=== PATIENT | male | born 1990 | race Caucasian/White ===

== ENCOUNTER 2020-08-09 18:43 | Emergency (ER) | payer OTHER, SELFPAY ==
--- NOTE | ~2020-08-09 | XR_ITS ---
EXAMINATION: XR chest 2V EXAM DATE: 08/09/2020 19:18 INDICATION: Recent COVID pneumonia. Shortness of breath. TECHNIQUE: Frontal and lateral projections of the chest obtained and reviewed. There is no prior tee dy for comparison. FINDINGS: The lungs are clear. There are no pleural effusions. The cardiomediastinal silhouette is within normal limits. There is no pneumothorax suspected. The bones and soft tissues are unremarkab le. IMPRESSION: No acute cardiopulmonary findings. Reviewed, dictated and finalized at location A. RATIONS WORKROOM CLERK
--- NOTE | 2020-08-09 18:45 | ED.GENADULT ---
HPI - General Adult General Chief complaint: Skin/Abscess/Foreign Body Stated complaint: Lumps in neck Time Seen by Provider: 08/09/20 18:45 Source: patient Mode of arrival: ambulatory Limitations: no limitations History of Present Illness HPI narrative: 30-year-old male patient presents to the [facility] with complaints of lumps to the left side of his neck for the past 3 weeks. Patient was diagnosed with Covid 3 weeks ago. Patient states that since he has been released by [facility]. Patient states he has had a little lump to the left side of the neck when he was first diagnosed and states that he has gotten a couple more lumps since then. Patient states they are nontender. Patient also states that he has had a little bit of shortness of breath. Denies any fevers, body aches or chills. Denies any nausea vomiting or diarrhea. Patient states he has had some constipation but that is chronic. Patient is an active smoker. Related Data Allergies Allergy/AdvReac Type Severity Reaction Status Date / Time No Known Allergies Allergy Unverified 12/31/17 17:48 Review of Systems Review of Systems: Narrative: CONSTITUTIONAL: Denies fever, chills, or sweats. EYES: Denies visual changes, redness, or discharge. ENT: Denies rhinorrhea, congestion, sore throat, or otalgia. Positive lumps to left side of the neck x3 weeks CARDIOVASCULAR: Denies chest pain, palpitations, or edema. RESPIRATORY: Denies cough, positive dyspnea. GASTROINTESTINAL: Denies abdominal pain, nausea, vomiting, or diarrhea. GENITOURINARY: Denies dysuria or hematuria. SKIN: Denies rash or itching. MUSCULOSKELETAL: Denies back pain, joint pain, or myalgia. NEUROLOGIC: Denies headache, numbness, or weakness. PSYCHIATRIC: Denies anxiety or depression. [facility] Past Medical History Medical History (Updated 08/09/20 @ 19:34 by NYA Cronin) Eustachian tube dysfunction RSV (acute bronchiolitis due to respiratory syncytial virus) 2010 Family History Family History (Updated 08/09/20 @ 19:12 by NYA Cronin) Other Lung cancer Social History Social History (Updated 08/09/20 @ 18:46 by NYA Cronin) Smoking status: Current every day smoker Alcohol intake: never Comments At the time of my signature I agree with nursing past medical history, surgical, social, and family history. There is no relevant family history pertinent to the presenting complaint. Exam Narrative: Exam Narrative: GENERAL: Well-appearing, well-nourished, and in no acute distress. HEAD: Normocephalic, atraumatic. EYES: PERRLA and EOMI. ENT: Nares clear, no rhinorrhea or epistaxis. Mucous membranes moist. Posterior pharynx with some erythema. No tonsil enlargement noted. Bilateral TMs are clear no erythema or foreign bodies in the canal. NECK: Supple. No obvious lymphadenopathy noted on palpation to the left lateral neck. No obvious supraclavicular lymph node swelling noted on palpation. CHEST: Slight expiratory wheezing noted to the right upper and right lower lobe on auscultation. No respiratory distress. Patient able talk in clear complete sentences. HEART: Regular rate and rhythm. No murmur heard. Normal peripheral pulses. ABDOMEN: Soft, nontender, nondistended, normal active bowel sounds. EXTREMITIES: Normal range of motion. No edema. SKIN: Warm, dry, no rash. NEURO: No focal deficits. Alert and oriented x3. Course Reevaluation(s) Reevaluation #1: Reevaluated patient after his strep and chest x-ray had resulted. Notified of the strep is negative and his chest x-ray is clear. Discussed with patient that the lymph node swelling that he is feeling was most likely due to the fact that he had a recent Covid infection. Discussed with patient that this may take some time to go away however he can take things like ibuprofen and use a heating pad to the lymph node area for comfort and to help with swelling. Discussed with patient I did go ahead and refer him to a primary docto
[2020-08-09 19:00] VITALS: BP 143/84; PULSE 71; RESP 16; TEMP 36.4; O2SAT 100
== END 2020-08-09 19:38 | disposition home or self-care (01) ==
PROVIDERS: Emergency Provider Nurse Practitioner Family
DX: J06.9 Acute upper respiratory infection, unspecified (principal); R59.1 Generalized enlarged lymph nodes; U07.1 COVID-19
CPT/HCPCS: 71046; 87081; 87880; 99213; G0463

== ENCOUNTER 2020-08-12 11:21 | Outpatient (CLI) | payer OTHER, SELFPAY ==
[2020-08-12 11:51] LABS: Hematocrit 45.6 % (42.0-52.0); Hemoglobin 15.8 g/dL (14.0-18.0); Mean Corpuscular HGB Conc 34.6 g/dl (32-36); Mean Corpuscular Hemoglobin 31.3 pg (26-34); Mean Corpuscular Volume 90.3 fl (80-100); Mean Platelet Volume 10.2 fl (7.4-10.4); Platelet Count Result 273 k/mm3 (150-375); Red Blood Count 5.05 M/mm3 (4.6-6.20); Red Cell Distribution Width 13.4 % (11.5-14.5); White Blood Count 4.8 K/mm3 (4.5-10.0)
[2020-08-12 12:04] LABS: Alanine Aminotransferase 33 U/L (4-50); Albumin Level 4.6 g/dL (3.5-5.1); Alkaline Phosphatase 61 U/L (38-126); Anion Gap 10 mmol/L (8-16); Aspartate Amino Transferase 33 U/L (17-59); Bilirubin,Total 0.7 mg/dL (0.2-1.3); Blood Urea Nitrogen 17 mg/dL (9-20); Calcium 9.6 mg/dL (8.4-10.2); Carbon Dioxide 30 mmol/L (22-30); Chloride 99 mmol/L (98-107); Cholesterol 194 mg/dL (0-200); Estimated Glomerular Filt Rate > 60; Glucose 111 mg/dL (75-110); HDL Direct 65 mg/dL; Potassium 4.8 mmol/L (3.4-5.0); Sodium 139 mmol/L (137-145); Triglycerides 70 mg/dL (<150)
[2020-08-12 12:05] LABS: Rheumatoid Factor < 8.6 IU/ML (<12)
[2020-08-12 12:15] LABS: LDL Cholesterol Direct 101 mg/dL
[2020-08-12 13:25] LABS: Basophils Percent Auto 0.6 % (0.2-1.2); Eosinophils Percent Auto 0.6 % (0-4.4); Immature Granulocyte Absolute 0.02 K/mm3 (0.00-0.031); Immature Granulocyte Percent A 0.4 % (0-0.5); Lymphocytes Absolute Auto 0.75 K/mm3 (0.9-3.2); Lymphocytes Percent Auto 16.2 % (18.3-44.2); Monocytes Absolute Auto 0.4 K/mm3 (0.1-0.6); Monocytes Percent Auto 8.7 % (2.6-8.5); Neutrophils Absolute Auto 3.4 K/mm3 (1.3-6.7); Neutrophils Percent Auto 73.5 % (45.5-73.1)
[2020-08-12 14:18] LABS: Erythrocyte Sedimentation Rate 5 mm/hr (0-20)
== END 2020-08-12 11:22 | disposition home or self-care (01) ==
PROVIDERS: PCP Emergency Medicine; Visit Provider Emergency Medicine
DX: R59.0 Localized enlarged lymph nodes (principal)
CPT/HCPCS: 36415; 80053; 80061; 84439; 84443; 85025; 85027; 85652; 86038; 86430

== ENCOUNTER 2020-08-12 12:18 | Emergency (ER) | payer OTHER, SELFPAY ==
--- NOTE | ~2020-08-12 | XR_ITS ---
EXAMINATION: XR chest 1V portable INDICATION: Left supraclavicular lymphadenopathy TECHNIQUE: Portable AP chest at 1353 hours COMPARISON: 08/09/2020 FINDINGS: The lungs are free of acute opacities. There is no pleural effusion or pneumothorax. The ca rdiomediastinal silhouette is normal. There is mild asymmetry in the left supraclavicular fat planes compared to the right of unclear etiology. IMPRESSION: 1. No acute cardiopulmonary abnormality. 2. Mild asymmetry of the left supraclavicular fat planes which could reflect the clinically diagnosed lymphadenopathy. Sensitivity of radiographs is low. Reviewed, dictated and finalized at location A. AL GENETICIST IMPRESSION: 1. No acute cardiopulmonary abnormality. 2. Mild asymmetry of the left supraclavicular fat planes which could reflect th e clinically diagnosed lymphadenopathy. Sensitivity of radiographs is low.
--- NOTE | ~2020-08-12 | CT_ITS ---
EXAMINATION: CT diagnostic chest w con DATE: 08/12/2020 14:25 INDICATION: Lymphadenopathy. Possible superior vena cava obstruction TECHNIQUE: Computed tomography (CT) of the chest was performed with 75 cc Omnipaque 350 intravenous c ontrast. Automated exposure control and iterative reconstruction technique were employed. Exam dose: 183.34 mGy-cm total exam DLP. COMPARISON: May 12, 2021 portable AP chest FINDINGS: The lungs are clear of infiltrate or consolidation. Superior segment right lower lobe calci fied pulmonary granuloma consistent with old pulmonary granulomatous disease. Normal size and homogeneous enhancement of the thyroid gland. Left supraclavicular lymphadenopathy. Mild lower left posterior triangle cervical lymphadenopathy. Left lateral superior 1.4 x 1.7 cm mediastinal lymphadenopathy impressing the left subclavian and bra chiocephalic veins. Prominent mid superior mediastinal lymphadenopathy, prevascular lymphadenopathy and aortopulmonary wi ndow lymphadenopathy are noted as well. No hilar or subcarinal lymphadenopathy. No retrocrural or upper abdominal periaortic or aortocaval lymphadenopathy. Normal splenic size. Normal heart size. No thoracic aortic aneurysm or dissection. No pericardial or pleural effusion. Normal morphology of the adrenal glands. Included upper abdominal structures are unremarkable. IMPRESSION: Superior mediastinal, prevascular and aortopulmonary prominent lymphadenopathy Left supraclavicular lymphadenopathy Lower left posterior triangle mild lymphadenopathy There is some compression of the left subclavian and brachiocephalic veins by left superior mediastin al lymphadenopathy but no superior vena cava occlusion Reviewed, dictated and finalized at Location A. Reviewed, dictated and finalized at location B. EAR EQUIPMENT TEST ENGINEER IMPRESSION: Superior mediastinal, prevascular and aortopulmonary prominent lym phadenopathy Left supraclavicular lymphadenopathy Lower left posterior triangle mild lymphadenopathy There is some compression of the left subclavian and brachiocephalic veins by l eft superior mediastinal lymphadenopathy but no superior vena cava occlusion
[2020-08-12 12:31] VITALS: BP 124/60; PULSE 76; RESP 16; TEMP 36.8; O2SAT 97
--- NOTE | 2020-08-12 12:58 | ECG_ITS ---
Measurements Intervals [place] Rate: 70 P: 19 KS: 143 QRS: 61 QRSD: 93 T: 50 QT: 365 QTc: 394 Interpretive Statements SINUS RHYTHM CANNOT RULE OUT SEPTAL INFARCT, AGE INDETERMINATE BASELINE ARTIFACT- I, II, AVR, AVL, V4 ABNORMAL ECG Electronically Signed On 08-12-2020 13:22:00 CORPORATE LEGAL SECRETARY by Homreo Corral D.O.
--- NOTE | 2020-08-12 13:01 | ED.GENADULT ---
HPI - General Adult General Chief complaint: Unspecified Stated complaint: lumps on neck and groin Time Seen by Provider: 08/12/20 12:51 Source: patient and family Mode of arrival: ambulatory Limitations: no limitations History of Present Illness HPI narrative: Patient is 30 years old white male presented to the ED with lumps at the base of left side of the neck noticed over 3 weeks ago. Slightly tender to touch. Patient denies any fever, chills, nausea, vomiting, chest pain, shortness of breath, headache. History of COVID-19 infection 3 weeks ago. Related Data Home Medications Medication Instructions Recorded Confirmed No Home Medications 08/12/20 08/12/20 Allergies Allergy/AdvReac Type Severity Reaction Status Date / Time No Known Allergies Allergy Verified 08/12/20 12:41 Review of Systems Review of Systems: Narrative: CONSTITUTIONAL: Denies fever, chills, or sweats. EYES: Denies visual changes, redness, or discharge. ENT: Denies rhinorrhea, congestion, sore throat, or otalgia. CARDIOVASCULAR: Denies chest pain, palpitations, or edema. RESPIRATORY: Denies cough or dyspnea. GASTROINTESTINAL: Denies abdominal pain, nausea, vomiting, or diarrhea. GENITOURINARY: Denies dysuria or hematuria. SKIN: Denies rash or itching. MUSCULOSKELETAL: Denies back pain, joint pain, or myalgia. NEUROLOGIC: Denies headache, numbness, or weakness. PSYCHIATRIC: Denies anxiety or depression. [facility] Past Medical History Medical History Eustachian tube dysfunction RSV (acute bronchiolitis due to respiratory syncytial virus) 2010 Family History Family History Other Lung cancer Social History Social History Smoking status: Current every day smoker Alcohol intake: never Gender identity (if verbalized by the patient): Male Exam Narrative: Exam Narrative: General appearance: Well-developed, well-nourished Skin: Normal color Head: Normocephalic, nontraumatic Eyes: Clear conjunctiva ENT: Oropharynx normal, ears normal, nose normal Neck: Supple, nontender, JVD mainly on the left side, supraclavicular puffiness Chest and respiratory: Airway patent, no respiratory distress, no accessory muscle use Heart: Regular rate/rhythm Abdomen: Soft, nontender, no organomegaly, quiet bowel sounds Vascular: Normal peripheral pulses, normal capillary refill. Musculoskeletal: Normal range of motion, nontender back Neurologic: Alert and oriented ?3, [employer] CONSULTANT is normal as tested, no gross motor deficit Course Course Emergency Course: Stable Consultations Consultation #1: Dr. Syed Ultrasound-guided lymph node biopsy by interventional radiologist Interventional radiology are not available today, Dr. Syed will call for appointment. Date: 08/12/20 Time: 16:01 Vital Signs Vital signs: Vital Signs Temperature 36.8 C 08/12/20 12:31 Pulse Rate 76 08/12/20 12:31 Respiratory Rate 16 08/12/20 12:31 Blood Pressure 124/60 08/12/20 12:31 Pulse Oximetry 97 08/12/20 12:31 Temperature 36.8 C 08/12/20 12:31 Pulse Rate 66 08/12/20 15:19 Respiratory Rate 17 08/12/20 15:19 Blood Pressure 126/76 08/12/20 15:19 Pulse Oximetry 98 08/12/20 15:19 Medical Decision Making MDM Narrative Medical decision making narrative: Patient presents with left supraclavicular swelling and JVD bilaterally mainly on the left side, Inferior vena cava, intrathoracic lymphadenopathy or tumors are my concern. Labs, chest x-ray, CT chest with contrast ordered. Further plan to follow Differential Diagnosis Di
[2020-08-12 13:59] VITALS: BP 154/67; PULSE 72; RESP 18; O2SAT 100
[2020-08-12 14:00] VITALS: PULSE 79
[2020-08-12 15:19] VITALS: BP 126/76; PULSE 66; RESP 17; O2SAT 98
[2020-08-12 16:32] VITALS: BP 124/79; PULSE 79; RESP 17; O2SAT 100
== END 2020-08-12 16:34 | disposition home or self-care (01) ==
PROVIDERS: Emergency Provider Emergency Medicine; PCP Emergency Medicine
DX: R59.1 Generalized enlarged lymph nodes (principal); F17.200 Nicotine dependence, unspecified, uncomplicated; Z86.16 Personal history of COVID-19
CPT/HCPCS: 71045; 71260; 93005; 99284; Q9967

== ENCOUNTER 2020-08-17 12:48 | Outpatient (CLI) | payer OTHER, SELFPAY ==
--- NOTE | ~2020-08-17 | US_ITS ---
EXAMINATION: US biopsy lymph node DATE: 08/17/2020 14:08 INDICATION: Left supraclavicular lymphadenopathy TECHNIQUE: The procedure including the risks and benefits was discussed with the patient. Risks discu ssed included bleeding and infection. The patient understood the risks and agreed to proceed. The sk in overlying the left supraclavicular region was prepped and draped in usual sterile fashion. Anesth etic was administered with 1% lidocaine subcutaneously. An 14 gauge core biopsy needle was advanced under continuous ultrasound observation to the lesion of interest. 5 core biopsy specimens were obta ined, 3 placed in RPMI media and 2 in formalin. The needle was removed and the entry site was cleane d and dressed. Post procedure ultrasound demonstrated no hemorrhage. FINDINGS: Ultrasound images demonstrate multiple enlarged hypoechoic left supraclavicular lymph nodes with short axis diameters measuring between 9 mm and 1.5 cm. Subsequent images demonstrate biopsy ne edle advanced into 3 of the enlarged lymph nodes. IMPRESSION: 1. Successful Ultrasound-guided biopsy of enlarged left supraclavicular lymph nodes nodes. Reviewed, dictated and finalized at location A. UNICATION EQUIPMENT MECHANIC IMPRESSION: 1. Successful Ultrasound-guided biopsy of enlarged left supraclavicular lymph n odes nodes.
[2020-08-20 01:00] LABS: NIL 0.01 IU/mL; Quantiferon TB Plus, 1T NEGATIVE (NEGATIVE)
== END 2020-08-17 12:49 | disposition home or self-care (01) ==
PROVIDERS: PCP Emergency Medicine; Referring Provider Emergency Medicine; Visit Provider Internal Medicine Hematology & Oncology
DX: C85.91 Non-Hodgkin lymphoma, unspecified, lymph nodes of head, face, and neck (principal)
CPT/HCPCS: 36415; 38505; 76942; 86480; 88305; 88342

== ENCOUNTER 2020-08-30 10:32 | Outpatient (CLI) | payer OTHER, SELFPAY ==
--- NOTE | ~2020-08-30 | PE_ITS ---
EXAMINATION: PET skull to mid thigh DATE: 08/30/2020 12:31 INDICATION: Hodgkin lymphoma of lymph nodes of the neck TECHNIQUE: Blood glucose level was 91 mg/dL. 10.77 mCi of 18-fluorodeoxyglucose (18-FDG) was administ ered i.v. Low dose computed tomography (CT) images were acquired from the base of the brain to the pr oximal thighs for attenuation correction and anatomic localization. Positron emission tomography (PET ) images were acquired in the same distribution beginning 58 minutes after injection. The dose-length product (DLP) was 348.23 mGy-cm. COMPARISON: CT, 08/12/2020 FINDINGS: Head/neck: There are pathologically enlarged left posterior cervical triangle lymph nodes which measu re up to 4.5 x 1.7 cm and demonstrate abnormal FDG uptake with an SUV max of 5.9 there is a 1.6 x 1.3 cm medial left supraclavicular lymph node with abnormal FDG uptake and SUV max of 3.4. Chest: There are pathologically enlarged left upper paratracheal and upper pretracheal lymph nodes wh ich measure up to 3.2 x 1.8 cm and demonstrate abnormal FDG uptake with an SUV max of 7.1. Pathologic ally enlarged prevascular lymph nodes measure up to 3.3 x 1.6 cm and demonstrate abnormal FDG uptake with an SUV max of 5.4. There is a 1.9 x 1.7 cm left internal mammary chain lymph node with an SUV ma x of 3.5. The lungs are free of acute opacities. There is no pleural effusion or pneumothorax. The he art size is normal. Abdomen/pelvis/proximal thighs: Physiologic FDG activity is present in the bowel and urinary tract. N o abnormal FDG uptake is identified. The liver, spleen, pancreas, gallbladder, and adrenal glands ar e normal. The kidneys are unremarkable. No pathologically enlarged abdominal or pelvic lymph nodes ar e identified. There is no free intraperitoneal gas or evidence of bowel obstruction. Musculoskeletal: No abnormal FDG uptake is identified. IMPRESSION: 1. Mediastinal and left neck lymphadenopathy with abnormal FDG uptake as detailed above, consistent w ith history of Hodgkin lymphoma. Reviewed, dictated and finalized at location A. OBGYN IMPRESSION: 1. Mediastinal and left neck lymphadenopathy with abnormal FDG uptake as detail ed above, consistent with history of Hodgkin lymphoma.
[2020-08-30 10:54] LABS: Glucose Point of Care 91 (65-105)
== END 2020-08-30 10:33 | disposition home or self-care (01) ==
LOC: ANHIMG 10:33
PROVIDERS: PCP Emergency Medicine; Visit Provider Internal Medicine Hematology & Oncology
DX: M54.6 Pain in thoracic spine (principal); C85.91 Non-Hodgkin lymphoma, unspecified, lymph nodes of head, face, and neck; R59.0 Localized enlarged lymph nodes
CPT/HCPCS: 78815; 82948; A9552

== ENCOUNTER 2020-09-05 10:41 | Outpatient (CLI) | payer OTHER, SELFPAY ==
--- NOTE | 2020-09-05 | ECHO_ITS ---
Patient Info Name: Ben Miramontes Age: 30 years : 1990 Gender: Male Ht: 71 in Wt: 150 lbs BSA: 1.84 m2 HR: 68 bpm BP: 135 / 89 mmHg Exam Date: 09/05/2020 11:08 AM Exam Location: [facility] Patient Status: Outpatient Admit Date: 09/05/2020 Staff Ordering Physician: Ta Syed MD Beam Sealer: Michelle Juarez RDCS Attending Provider: Ta Syed MD Referring Physician: Yahaira NORRIS; Exam Type: CA echo doppler color flow Study Info Indications - Hodgkins Lymphoma Complete two-dimensional, color flow and Doppler transthoracic echocardiogram is performed. Summary 1. Complete two-dimensional, color flow and Doppler transthoracic echocardiogram is performed. 2. Left ventricular chamber dimension is normal. 3. Left ventricular systolic function is normal, estimated at 60-65%. 4. The left ventricular diastolic function is normal. 5. E/e' 4 is normal. 6. Global longitudinal strain is not performed. 7. There is mild tricuspid valve regurgitation. 8. No pulmonary hypertension, estimated pulmonary arterial systolic pressure is 17 mmHg. 9. There is trace pulmonic regurgitation. Left Ventricle E/e' 4 is normal. Global longitudinal strain is not performed. Left ventricular chamber dimension is normal. Left ventricular systolic function is normal, estimated at 60-65%. The left ventricular diastolic function is normal. Right Ventricle Right ventricular chamber dimension is normal. Right ventricular systolic function is normal. Left Atria Left atrial chamber dimension is normal. Right Atria Right atrial chamber dimension is normal. Aortic Valve The aortic valve is trileaflet. There is no aortic valve stenosis. There is no aortic valve regurgitation. Pulmonic Valve There is trace pulmonic regurgitation. Mitral Valve There is no mitral valve stenosis. There is no mitral valve regurgitation. Tricuspid Valve There is mild tricuspid valve regurgitation. No pulmonary hypertension, estimated pulmonary arterial systolic pressure is 17 mmHg. Pericardium/Pleural There is no pericardial effusion. Inferior Vena Cava Normal inferior vena cava with >50% collapse upon inspiration consistent with normal right atrial pressure, 5 mmHg. Aorta The aortic root size at the sinus of Valsalva is normal. Left Ventricular Outflow Tract Name Value Normal LVOT 2D LVOT Diameter 1.9 cm LVOT Doppler LVOT Peak Gradient 4 mmHg LVOT Mean Gradient 2 mmHg LVOT VTI 28 cm LVOT VTI/AV VTI Ratio 0.8 LVOT Stroke Volume 82 ml LVOT CO 11.7 l/min LVOT CI 6.4 l/min/m2 Pulmonic Valve Name Value Normal RVOT Doppler RVOT Peak Grad
== END 2020-09-05 10:42 | disposition home or self-care (01) ==
PROVIDERS: PCP Emergency Medicine; Visit Provider Internal Medicine Hematology & Oncology
DX: C81.72 Other Hodgkin lymphoma, intrathoracic lymph nodes (principal); I36.1 Nonrheumatic tricuspid (valve) insufficiency
CPT/HCPCS: 93306

== ENCOUNTER 2020-09-12 02:20 | Day surgery (SDC) | payer OTHER, SELFPAY ==
[2020-09-05 13:20] VITALS: BMI 21.5
--- NOTE | ~2020-09-12 | XR_ITS ---
EXAMINATION: XR chest port-a-cath/central DATE: 09/12/2020 13:16 INDICATION: Port catheter insertion TECHNIQUE: frontal view of the chest was obtained. COMPARISON: Chest radiograph dated 08/12/2020 FINDINGS: Interval placement of a right internal jugular central venous port catheter with distal tip in the ca udal superior vena cava. Lungs remain clear with no focal airspace opacities, pulmonary edema, pleura l effusion or pneumothorax. Cardiomediastinal silhouette is normal. Visualized bones and soft tissues are unremarkable. IMPRESSION: 1. Right internal jugular central venous port catheter tip in the caudal superior vena cava. No acute cardiopulmonary disease. Reviewed, dictated and finalized at location A. IMPRESSION: 1. Right internal jugular central venous port catheter tip in the caudal superi or vena cava. No acute cardiopulmonary disease.
--- NOTE | ~2020-09-12 | XR_ITS ---
EXAMINATION: XR fl guide central line place EXAM DATE: 09/12/2020 12:54 INDICATION: Denny catheter insertion. TECHNIQUE: Fluoroscopy used during XR fl guide central line place performed by Dr. Syd Franklin MD. Radiologist was not present for the imaging or procedure. The DAP for this procedure was 0.06 7 mGym2. FINDINGS: Frontal image demonstrates right-sided Port-A-Cath IJ approach, tip over expected location of the cavoatrial junction. Correlate with procedure note. IMPRESSION: Fluoroscopy used during denny catheter insertion. Reviewed, dictated and finalized at location A.
--- NOTE | 2020-09-12 11:13 | WPDANESEPPF ---
Anes - Initial Pre Proc Eval Procedure: Operation Date: 09/12/20 12:00 Proposed Procedures p Insertion Denny Cath - Syd Franklin MD Date/Time: 09/12/20 11:13 Surgeon: Syd Franklin MD Pre Op Diagnosis: hodgkins lymphoma Patient Data Age: 30 Gender: M Height: 1.8 m Weight: 70 kg Allergies Allergy/AdvReac Type Severity Reaction Status Date / Time No Known Allergies Allergy Verified 09/05/20 13:19 Home Medications Medication Instructions Recorded Confirmed Type multivitamin with minerals [Men's 1 tablet PO DAILY 09/05/20 09/05/20 History One Daily] Patient hx anesthesia problems: none Family hx anesthesia problems: none PMFSH Past Medical History Medical History Eustachian tube dysfunction RSV (acute bronchiolitis due to respiratory syncytial virus) 2010 Family History Family History Other Lung cancer Social History Social History Years smoked: 13 Smoking status: Current every day smoker Tobacco type: cigarettes Alcohol intake: never Substance use: current Substance use type: marijuana Gender identity (if verbalized by the patient): Male Spiritual care concerns: No Anes - Eval Final PreProcedure Day of Procedure 09/12/20 11:13 Patient weight: normal Heart: regular rate and rhythm Lungs: clear to auscultation and normal air movement Airway: Mallampati scale class II Neurological: alert and oriented Last oral intake: >/= 8 hours ASA classification: III Emergent: no Anesthetic plan: proceed Anesthesia type and monitoring: general GIVS and standard monitoring Informed Consent: The patient's anesthetic plan and its attendant risks and benefits were discussed with the patient/family/POA. Questions were solicited and answers provided to the satisfaction of the patient/family/POA.
[2020-09-12] MEDS: LACTATED RINGERS 1,000 ML 30 ML IV CONT (11:20)
[2020-09-12] MEDS: KETOROLAC 15 MG/ML VIAL (*BKC) IV PUSH (11:36)
[2020-09-12 11:37] VITALS: BP 128/79; PULSE 72; TEMP 37.2; O2SAT 100
[2020-09-12 11:37] LABS: INR 0.9; Prothrombin Time 12.6 Seconds (11.1-14.7)
[2020-09-12 11:38] LABS: Partial Thromboplastin Time 32.6 SECONDS (22.3-36.8)
--- NOTE | 2020-09-12 11:39 | PM.HPGS ---
History of Present Illness History of Present Illness Consent: Risks, benefits, and alternatives of an US guided placement of Port-A-Cath by ultrasound guidance have been discussed and questions answered. Patient agrees to proceed with procedure. Chief complaint: hodgkins lymphoma Narrative: Ben Miramontes is a 30 year old male who was recently diagnosed with classical Hodgkin's lymphoma stage to be. He had biopsy of a mediastinal lymph node done on August 17, 2020. He has had a PET scan done on August 30 which showed a 4.5 x 1.7 cm Lt. posterior cervical triangle lymph node with elevated SUV on a PET. There were several other lymph nodes that also had signs of tumor on his PET scan. He has discuss further treatment with Dr. Mike singleton and they would like to have a Port-A-Cath placed for chemotherapy. Review of Systems Constitutional: Constitutional: Reports no additional constitutional complaints, Reports fatigue and Denies malaise Eyes: Eyes: Denies change in vision and Denies loss of vision ENT: Reports Normal hearing present, Denies change in voice, Denies dizziness, Denies hoarseness and Denies sore throat Cardiovascular: Cardiovascular: Denies chest pain, Denies leg edema and Denies dyspnea Respiratory: Respiratory: Denies cough, Denies dyspnea and Denies wheezing Gastrointestinal: Gastrointestinal: Denies hematochezia, Denies change in bowel habits and Denies heartburn Genitourinary: Genitourinary: Denies urinary frequency and Denies urinary incontinence Neurologic: Reports Normal hearing present, Denies confusion, Denies dizziness, Denies loss of vision, Denies memory loss and Denies seizure-like activity Psychiatric: Psychiatric: Denies confusion, Denies depression and Denies memory loss Endocrine: Endocrine: Denies cold intolerance and Reports fatigue Hematologic/Lymphatic: Hematologic/Lymphatic: Denies easy bleeding and Denies easy bruising Allergic/Immunologic: Allergic/Immunologic: Denies wheezing PMFSH Past Medical History Medical History Eustachian tube dysfunction RSV (acute bronchiolitis due to respiratory syncytial virus) 2010 Smoker Family History Family History Other Lung cancer Social History Social History Years smoked: 13 Smoking status: Current every day smoker Tobacco type: cigarettes Alcohol intake: never Substance use: current Substance use type: marijuana Gender identity (if verbalized by the patient): Male Spiritual care concerns: No Meds Home Medications and Allergies Home Medications Medication Instructions Recorded Confirmed Type multivitamin with minerals [Men's 1 tablet PO DAILY 09/05/20 09/05/20 History One Daily] hydrocodone-acetaminophen 1 tablet PO Q6H PRN #7 tablet 09/12/20 Rx Allergies Allergy/AdvReac Type Severity Reaction Status Date / Time No Known Allergies Allergy Verified 09/05/20 13:19 Exam Const: General: cooperative, healthy appearing, no acute distress, well developed and alert; No confusion Nutritional Appearance: well nourished Orientation/consciousness: patient oriented x3 and No confusion Limitations: no limitations HENMT: Head: normal to inspection, normocephalic and atraumatic Ears: hearing grossly normal bilaterally General nose exam: Normal external nose present Face and sinus: no edema Mouth: Yes Normal oral and palatal mucosa present and Yes lip normal Throat: posterior oropharynx normal Eyes: General: appearance normal, both eyes and all related structures Sclera: sclerae normal Pupils: Equal, round and reactive pupils present EOM: EOMs intact bilaterally Neck: Neck: normal visual inspection, trachea midline, supple and lymphadenopathy (Lt posterior [place] and supraclavicular lymph node enlargement.) Resp: Effort & Inspection: normal respiratory effort and able to speak in complete sen
--- NOTE | 2020-09-12 12:02 | WPDHPUPDATE1 ---
History and Physical Update Update Date/Time: 09/12/20 12:02 History and Physical has been reviewed, including an updated exam of the patient. There are NO changes in the patient's condition. Risks, benefits, and alternatives of an US guided placement of a Denny-cath have been discussed and questions answered. Patient agrees to proceed with procedure.
[2020-09-12] MEDS: ceFAZolin 2 GM/D5W 50 ML 2 GM/50 ML BAG IVPB (12:09)
[2020-09-12] MEDS: BUPIVACAINE/EPINEPHRINE 0.5% 30 ML VIAL INFILTRATE (12:36)
[2020-09-12] MEDS: HEPARIN SODIUM 5,000 UNITS/ML VIAL 5000 UNITS IRRIGATION (12:37)
[2020-09-12 13:05] VITALS: BP 109/66; PULSE 64; RESP 12; O2SAT 100
--- NOTE | 2020-09-12 13:20 | PM.PROC ---
Procedure Note - Detailed Date of procedure: 09/14/20 Pre-op diagnosis: hodgkins lymphoma Post-op diagnosis: same Procedure performed: Ultrasound-guided placement of Port-A-Cath Description of procedure: Patient was seen and marked in the pre-op area prior to coming to the OR. Patient was brought to the operating room. He was placed supine on the operating table and general IV sedation was induced. The nurse hand i cutter provided oxygen and IV sedation. Patient's head was carefully turned to the left side while in the supine position and the patient's entire neck and anterior chest on both sides was prepped and draped in the usual sterile fashion. Following this the appropriate time-out was completed confirming procedure and patient. We confirmed that all the needed equipment was present in the room. Following this the ultrasound probe was draped into the field and using the probe we carefully identified the carotid artery and jugular vein on the right neck. I marked the skin directly over the Rt. internal jugular vein. An image was taken with the ultrasound machine and transferred to his [employer] chart. She this showed normal vascular anatomy of the right jugular and internal carotid artery. Following this, after making a small slit with an 11 blade knife over the area of marked skin and using the continuous ultrasound guidance, a Cook needle was placed through the skin incision into this vein. I then was able to draw back good dark blood. Once this was completed a guidewire using a J-tip was advanced through the needle and then the needle and the guidewire cover were withdrawn. C-arm fluoroscopy was used to confirm that the guidewire was nicely in the venous system. Once this was confirmed with the C - arm I preceded on by making the pocket for the port on the patient's anterior right chest approximately 3 centimeters below the clavicle overlying the chest wall. Local anesthetic was infiltrated into the skin where there was a transverse incision marked out. Incision was made and we made a pocket inferior to the incision with just a little dissection superior. The low-profile port was tried in the pocket and seemed to fit well. Following this the catheter which had been placed on a tunneling device was tunneled from the port site on the anterior right chest up to the right neck where a small incision had been made with an #11 blade knife. Then the catheter was pulled through so that we would have 15 centimeters to put into the central venous system once the dilation took place. Following this we placed the dilator and sheath over the guidewire in the jugular vein and carefully dilated the tract into the central venous system. The guidewire and dilator were then removed, carefully covering the end of the sheath to prevent air embolus. The end of the catheter which had been cut off straight across and the tip checked was then inserted into the sheath and into the neck. I then carefully pulled the 2 arms of the tear-away sheath away as the physical therapy assistant held the catheter in position with a DeBakey forceps. Following this we checked the position of the catheter with C-arm fluoroscopy confirming that the tip seemed to be in the distal superior vena cava near the junction with the right atrium. I felt that it was in good position and so the rest of the catheter was pulled down toward the feet into the port site. We then measured to the appropriate position to cut the catheter to attach it to the port stem. Then the connector sealing device for the catheter port was placed onto the catheter and then the catheter cut to the appropriate length and inserted onto the stem of the port. Then the connector was advanced onto the stem over the catheter sealing it to the port. A single 3- 0 Prolene suture was also used during this to suture the connector to the port and to the underlying musculature. Following this at one other site the port was sutured to the underlying mus
[2020-09-12 13:25] VITALS: BP 129/72; PULSE 74; RESP 16; O2SAT 100
[2020-09-12 13:45] VITALS: BP 133/69; PULSE 58; RESP 16; O2SAT 100
[2020-09-12 13:58] VITALS: BP 139/81; PULSE 57; RESP 16; O2SAT 100
== END 2020-09-12 14:05 | disposition home or self-care (01) ==
PROVIDERS: PCP Emergency Medicine; Visit Provider Surgery
PROC: (CPT 36561; principal; 2020-09-12 12:00)
DX: C81.90 Hodgkin lymphoma, unspecified, unspecified site (principal); U07.1 COVID-19; F17.210 Nicotine dependence, cigarettes, uncomplicated; F12.90 Cannabis use, unspecified, uncomplicated
CPT/HCPCS: 36561; 36415; 77001; 85610; 85730; C1788; J0690; J1644; J1885; J2250; J2405; J2704; J3010; J7030; J7120

== ENCOUNTER 2020-09-12 08:11 | Outpatient (CLI) | payer OTHER, SELFPAY ==
--- NOTE | 2020-09-15 15:13 | WPDPFTINT ---
PFT Interpretation This PFT met all criteria for ATS standards and reproducibility FEV/FVC post bronchodilator 75% FEV1 96% FVC 107% TLC 102% RV 71% RV/TLC 76% DLCO 76% when adjusted for alveolar volume but not adjusted for hemoglobin Flow volume loops were normal. Impression: This is a normal pulmonary function test other than a mildly decreased diffusion capacity. Mildly decreased diffusion capacity may be a machine error possible normal variant. Clinical correlation is advised.
== END 2020-09-12 08:12 | disposition home or self-care (01) ==
PROVIDERS: PCP Emergency Medicine; Visit Provider Internal Medicine Hematology & Oncology
DX: C81.72 Other Hodgkin lymphoma, intrathoracic lymph nodes (principal)
CPT/HCPCS: 94375; 94726; 94729

== ENCOUNTER 2020-10-30 20:56 | Emergency (ER) | payer OTHER, SELFPAY ==
--- NOTE | ~2020-10-30 | CT_ITS ---
EXAMINATION: CT soft tissue neck w con DATE: 10/30/2020 23:23 INDICATION: Right anterior neck pain. TECHNIQUE: Computed tomography (CT) of the neck was performed with 75 mL Omnipaque-350 intravenous co ntrast. Automated exposure control and iterative reconstruction technique were employed. The dose-corey gth product was 535.55 mGy-cm. COMPARISON: Chest CT 08/12/2020, PET CT 08/30/2020 FINDINGS: There is mild mediastinal lymphadenopathy. For example, a prevascular lymph node measures 1 0 x 22 mm, improved from 21 x 34 mm on 08/30/2020. There is a 13 x 14 mm right high internal jugular ch ain lymph node. There is a right internal jugular port with tip in superior vena cava. There is throm bosis of right internal jugular vein and right sigmoid sinus. There is thrombus in the right brachioc ephalic vein around the port. There is fat stranding around the right internal jugular vein, consiste nt with inflammation. The adenoids are enlarged. The cervical carotid arteries are normal. There is m ild cervical spondylosis. IMPRESSION: 1. Thrombosis of right internal jugular vein and right sigmoid sinus. Thrombus in the right brachioce phalic vein around the port. 2. Mild mediastinal lymphadenopathy with interval improvement, consistent with lymphoma. 3. Mildly enlarged right high internal jugular chain lymph node, new from 08/30/2020, which may be reac tive or lymphoma. 4. Enlarged adenoids. Reviewed, dictated and finalized at location B. IMPRESSION: 1. Thrombosis of right internal jugular vein and right sigmoid sinus. Thrombus in the right brachiocephalic vein around the port. 2. Mild mediastinal lymphadenopathy with interval improvement, consistent with lymphoma. 3. Mildly enlarged right high internal jugular chain lymph node, new from 021, which may be reactive or lymphoma. 4. Enlarged adenoids.
[2020-10-30 21:00] VITALS: BP 135/95; PULSE 100; RESP 16; TEMP 36.1; O2SAT 100
--- NOTE | 2020-10-30 21:55 | ED.NECK ---
HPI - Neck Pain/Injury General Chief Complaint: Neck Pain/Injury Stated Complaint: possible infected port Time Seen by Provider: 10/30/20 21:19 Source: patient Mode of arrival: ambulatory Limitations: no limitations History of Present Illness HPI Narrative: This is a 30 year old male with hodgkin's lymphoma who presents for evaluation of right neck pain. He has a right subclavian port a cath that was placed in August 2020. He has been receiving infusion treatments every 2 weeks. His last infusion was 10 days ago . He states after receiving his infusion he developed burning in his throat and he has a scant amount of blood in his sputum. That resolved after 2 days. He states starting 2 days ago he has developed right anterior neck pain and his pain is worse with moving his neck. He denies nausea, vomiting, chest pain or sob. He reports he has been having temperatures around 99.3 F but nothing higher. He denies pain around the port. He is due to for another infusion this Saturday. Related Data Home Medications Medication Instructions Recorded Confirmed multivitamin with minerals [Men's 1 tablet PO DAILY 09/05/20 09/05/20 One Daily] ondansetron 10/30/20 10/30/20 Allergies Allergy/AdvReac Type Severity Reaction Status Date / Time No Known Allergies Allergy Verified 10/30/20 21:09 Review of Systems Review of Systems: All systems reviewed & are unremarkable except as noted in HPI and below Constitutional: Constitutional: Denies chills and Denies fever(s) Eyes: Eyes: Denies change in vision Cardiovascular: Cardiovascular: Denies chest pain Respiratory: Respiratory: Denies cough and Denies dyspnea Neurologic: Denies vertigo, Denies headache(s), Denies focal weakness and Denies numbness [facility] Past Medical History Medical History Eustachian tube dysfunction Hodgkin lymphoma (~07/2020) Port-A-Cath in place RSV (acute bronchiolitis due to respiratory syncytial virus) 2010 Smoker Family History Family History Other Lung cancer Social History Social History Years smoked: 13 Smoking status: Current every day smoker Tobacco type: cigarettes Alcohol intake: never Substance use: current Substance use type: marijuana Gender identity (if verbalized by the patient): Male Spiritual care concerns: No Exam Const: General: no acute distress and alert Orientation/consciousness: patient oriented x3 HENMT: Head: normocephalic and atraumatic Face and sinus: face symmetric Mouth: Yes Normal oral and palatal mucosa present, Yes lip normal, Yes oropharynx normal and Yes moist mucous membranes Throat: uvula midline and no peritonsillar masses Eyes: EOM: EOMs intact bilaterally Neck: Neck: no lymphadenopathy Other: TTP right anterior neck, no swelling, no erythema Chest: Other: right upper chest dio cath in place, no swelling, no redness, no tenderness. Resp: Effort & Inspection: normal respiratory effort and no retractions Auscultation: clear to auscultation bilaterally Cardio: Rate: regular rate Rhythm: regular rhythm Heart sounds: no murmurs GI: GI Palp: Yes Soft to palpation, No Tenderness to palpation present (GI) and No Guarding due to palpation present (GI) Auscultation: normal bowel sounds Skin: General skin exam: normal color Rashes: no rashes Neuro: General: patient oriented x3 and moves all extremities Psych: Mental Status: mental status grossly normal Affect: normal affect Course Reevaluation(s) Reevaluation #1: I spoke with patient and his significant other about CT findings. I discussed discharge plan and treatment. I also discussed signs and conditions to return to ER. She has not headache, dizziness, focal deficits, visual changes , Date: 10/31/20 Time: 01:44 Consultations Consultation #1: I Discussed CT results with Dr. Syed showing thromb
[2020-10-30 22:03] LABS: Basophils Absolute Auto 0.1 K/mm3 (0.0-0.1); Basophils Percent Auto 1.4 % (0.2-1.2); Eosinophils Absolute Auto 0.1 K/mm3 (0-0.3); Eosinophils Percent Auto 2.5 % (0-4.4); Hematocrit 40.4 % (42.0-52.0); Immature Granulocyte Absolute 0.03 K/mm3 (0.00-0.031); Immature Granulocyte Percent A 0.5 % (0-0.5); Immature Platelet Fraction Pct 5.8 % (0.9-11.2); Lymphocytes Percent Auto 22.9 % (18.3-44.2); Mean Corpuscular HGB Conc 34.7 g/dl (32-36); Mean Corpuscular Hemoglobin 31.5 pg (26-34); Monocytes Absolute Auto 0.5 K/mm3 (0.1-0.6); Monocytes Percent Auto 8.1 % (2.6-8.5); Neutrophils Absolute Auto 3.7 K/mm3 (1.3-6.7); Neutrophils Percent Auto 64.6 % (45.5-73.1); Platelet Count Result 264 k/mm3 (150-375); Red Blood Count 4.44 M/mm3 (4.6-6.20); Red Cell Distribution Width 13.5 % (11.5-14.5); White Blood Count 5.7 K/mm3 (4.5-10.0)
[2020-10-30 22:10] LABS: INR 0.9; Prothrombin Time 12.6 Seconds (11.1-14.7)
[2020-10-30 22:11] LABS: Partial Thromboplastin Time 27.1 SECONDS (22.3-36.8)
[2020-10-30 22:14] LABS: Platelet Estimate Adequate (Adequate)
[2020-10-30 22:15] LABS: Platelet Clumps Present
[2020-10-30 22:35] LABS: Alanine Aminotransferase 22 U/L (4-50); Albumin Level 4.6 g/dL (3.5-5.1); Alkaline Phosphatase 50 U/L (38-126); Anion Gap 6 mmol/L (8-16); Aspartate Amino Transferase 32 U/L (17-59); Bilirubin,Total 0.5 mg/dL (0.2-1.3); Blood Urea Nitrogen 16 mg/dL (9-20); CRP 1.2 mg/dL (<1.0); Carbon Dioxide 30 mmol/L (22-30); Chloride 102 mmol/L (98-107); Estimated CRCL calculation 93 ml/min; Estimated Glomerular Filt Rate > 60; Glucose 102 mg/dL (75-110); Potassium 4.2 mmol/L (3.4-5.0); Sodium 138 mmol/L (137-145)
[2020-10-30 22:52] VITALS: BP 130/81; PULSE 98; RESP 18; O2SAT 100
[2020-10-31 00:14] VITALS: BP 126/91; PULSE 83; RESP 18; O2SAT 97
--- NOTE | 2020-10-31 00:18 | PC.NURSE ---
Pt requests pain medication. EDP aware.
[2020-10-31] MEDS: KETOROLAC 30 MG/ML VIAL (*BKC) IV PUSH (00:29)
[2020-10-31] MEDS: RIVAROXABAN 15 MG TABLET PO (01:53)
[2020-10-31 02:08] VITALS: BP 126/81; PULSE 77; RESP 18; O2SAT 98
== END 2020-10-31 02:10 | disposition home or self-care (01) ==
PROVIDERS: Emergency Provider General Practice; PCP Emergency Medicine
DX: T82.898A Other specified complication of vascular prosthetic devices, implants and grafts, initial encounter (principal); I82.C11 Acute embolism and thrombosis of right internal jugular vein; G08 Intracranial and intraspinal phlebitis and thrombophlebitis; C81.90 Hodgkin lymphoma, unspecified, unspecified site; F17.210 Nicotine dependence, cigarettes, uncomplicated; Y71.1 Therapeutic (nonsurgical) and rehabilitative cardiovascular devices associated with adverse incidents
CPT/HCPCS: 36415; 70491; 80053; 85025; 85055; 85610; 85730; 86140; 96374; 99284; A9270; J1885; Q9967

== ENCOUNTER 2020-11-15 12:30 | Outpatient (CLI) | payer OTHER, SELFPAY ==
--- NOTE | ~2020-11-15 | PE_ITS ---
EXAMINATION: PET skull to mid thigh DATE: 11/15/2020 14:04 INDICATION: Classic Hodgkin lymphoma. TECHNIQUE: Blood glucose level was 94 mg/dL. 9.0 mCi of 18-fluorodeoxyglucose (18-FDG) was administer ed i.v. Low dose computed tomography (CT) images were acquired from the base of the brain to the prox imal thighs for attenuation correction and anatomic localization. Automated exposure control was empl oyed. Dose-length product (DLP) was 444 mGy-cm. Positron emission tomography (PET) images were acquir ed in the same distribution. COMPARISON: PET CT 08/30/2020, neck CT 10/30/2020, chest CT 08/12/2020 FINDINGS: Head/neck: There is increased activity in the palatine and lingual tonsils, sublingual glands, and gl ottis without CT correlate, likely physiologic. The adenoids are enlarged without increased activity, likely benign. There are no pathologically enlarged lymph nodes. There is a right internal jugular p ort with tip in right atrium. Chest: There is no pneumonia or pleural effusion. The heart size is normal. No pericardial effusion. There is mild mediastinal lymphadenopathy without increased activity. For example, a node in the ante rior mediastinum measures 1.8 x 1.2 cm, improved from 2.6 x 2.1 cm on 08/30/20. Abdomen/pelvis/proximal thighs: The liver, gallbladder, spleen, pancreas, adrenal glands, and kidneys are normal. There are no dilated loops of bowel. There are no pathologically enlarged lymph nodes. T here is no free intraperitoneal fluid. There is no osseous malignancy. IMPRESSION: 1. Improved mild mediastinal lymphadenopathy without increased activity, consistent with treated lymp mark. Reviewed, dictated and finalized at location B. IMPRESSION: 1. Improved mild mediastinal lymphadenopathy without increased activity, consis tent with treated lymphoma.
[2020-11-15 12:47] LABS: Glucose Point of Care 94 mg/dl (65-105)
== END 2020-11-15 12:31 | disposition home or self-care (01) ==
LOC: ANHIMG 12:37
PROVIDERS: PCP Emergency Medicine; Visit Provider Internal Medicine Hematology & Oncology
DX: C81.70 Other Hodgkin lymphoma, unspecified site (principal)
CPT/HCPCS: 78815; 82948; A9552

== ENCOUNTER 2020-11-23 11:53 | Outpatient (CLI) | payer OTHER, SELFPAY ==
--- NOTE | ~2020-11-23 | XR_ITS ---
EXAMINATION: XR fl port a cath w contrast DATE: 11/23/2020 12:56 INDICATION: Classical Hodgkin lymphoma. Port thrombosis. TECHNIQUE: I performed fluoroscopy while the port was injected with Omnipaque 240 intravenous contras t. 159 images were obtained. Fluoroscopy exposure time was 0.2 minutes. COMPARISON: Neck CT 10/30/2020 FINDINGS: Aspiration of the port demonstrates blood return. Injection of the right internal jugular p ort demonstrates an intact catheter with tip in the superior vena cava. There is a filling defect tess und the tip of the catheter, but contrast exits the catheter. IMPRESSION: 1. Filling defect around the tip of the catheter, consistent with thrombus. The catheter remains func tional for injection and gives blood return on aspiration. Reviewed, dictated and finalized at location A. IMPRESSION: 1. Filling defect around the tip of the catheter, consistent with thrombus. The catheter remains functional for injection and gives blood return on aspiration .
== END 2020-11-23 11:54 | disposition home or self-care (01) ==
LOC: ANHIMG 11:55
PROVIDERS: PCP Emergency Medicine; Visit Provider Internal Medicine Hematology & Oncology
DX: C81.70 Other Hodgkin lymphoma, unspecified site (principal)
CPT/HCPCS: 36598

== ENCOUNTER 2021-01-18 09:49 | Outpatient (CLI) | payer OTHER, SELFPAY ==
--- NOTE | 2021-01-18 | ECHO_ITS ---
Patient Info Name: Ben Miramontes Age: 30 years : 1990 Gender: Male Ht: 69 in Wt: 156 lbs BSA: 1.86 m2 HR: 61 bpm BP: 122 / 83 mmHg Heart Rhythm: Sinus Rhythm Exam Date: 01/18/2021 10:19 AM Exam Location: [facility] Patient Status: Outpatient Admit Date: 01/18/2021 Staff Ordering Physician: Ta Syed MD Caramel Cutter Hand: Michelle Juarez RDCS Attending Provider: Ta Syed MD Referring Physician: Yahaira NORRIS; Exam Type: CA echo doppler color flow Study Info Indications - CLASSICAL HODGKINS LYMPHOMA Complete two-dimensional, color flow and Doppler transthoracic echocardiogram is performed. Summary 1. Complete two-dimensional, color flow and Doppler transthoracic echocardiogram is performed. 2. Left ventricular chamber dimension is normal. 3. Left ventricular systolic function is normal, estimated at 60-65%. 4. The left ventricular diastolic function is normal. 5. E/e' 6 is not elevated. 6. Global longitudinal strain is normal at -17.0%. 7. There is trace tricuspid valve regurgitation. 8. No pulmonary hypertension, estimated pulmonary arterial systolic pressure is 18 mmHg. Left Ventricle E/e' 6 is not elevated. Global longitudinal strain is normal at -17.0%. Left ventricular chamber dimension is normal. Left ventricular systolic function is normal, estimated at 60-65%. The left ventricular diastolic function is normal. Right Ventricle Right ventricular systolic function is normal and with normal TAPSE 2.4 cm. Right ventricular chamber dimension is normal. Left Atria Left atrial chamber dimension is normal. Right Atria Right atrial chamber dimension is normal. Aortic Valve The aortic valve is trileaflet. There is no aortic valve stenosis. There is no aortic valve regurgitation. Pulmonic Valve There is no pulmonic regurgitation. Mitral Valve There is no mitral valve stenosis. There is no mitral valve regurgitation. Tricuspid Valve There is trace tricuspid valve regurgitation. No pulmonary hypertension, estimated pulmonary arterial systolic pressure is 18 mmHg. Pericardium/Pleural There is no pericardial effusion. Inferior Vena Cava Normal inferior vena cava with >50% collapse upon inspiration consistent with normal right atrial pressure, 5 mmHg. Aorta The aortic root size at the sinus of Valsalva is normal. Left Ventricular Outflow Tract Name Value Normal LVOT 2D LVOT Diameter 2.2 cm LVOT Doppler LVOT Peak Gradient 4 mmHg LVOT Mean Gradient 2 mmHg LVOT VTI 21 cm LVOT VTI/AV VTI Ratio 0.7 LVOT Stroke Volume 75 ml LVOT CO 4.7 l/min LVOT CI 2.5 l/min/m2 Pulmonic Valve Name Value Normal RVOT Doppler
== END 2021-01-18 09:50 | disposition home or self-care (01) ==
PROVIDERS: PCP Emergency Medicine; Visit Provider Internal Medicine Hematology & Oncology
DX: C81.70 Other Hodgkin lymphoma, unspecified site (principal)
CPT/HCPCS: 93306

== ENCOUNTER 2021-03-30 10:36 | Outpatient (CLI) | payer OTHER, MEDICAID, SELFPAY ==
--- NOTE | ~2021-03-30 | PE_ITS ---
EXAMINATION: PET skull to mid thigh DATE: 03/30/2021 12:35 INDICATION: Hodgkin's lymphoma TECHNIQUE: Blood glucose level was 87 mg/dL. 10.19 mCi of 18-fluorodeoxyglucose (18-FDG) was administ ered i.v. Low dose computed tomography (CT) images were acquired from the base of the brain to the pr oximal thighs for attenuation correction and anatomic localization. Positron emission tomography (PET ) images were acquired in the same distribution beginning 67 minutes after injection. Images includin g fused PET/CT images were reconstructed in axial, coronal, and sagittal planes. Automated exposure c ontrol technique was employed. The dose-length product was 364.02mGy-cm. COMPARISON: 11/15/2020 FINDINGS: Head/neck: There is symmetric increased activity in the oral cavity, parotid glands, laryngeal muscles and ocu lar muscles without CT correlate, likely physiologic. Mild increased uptake at the bilateral right pa latine tonsil which appears asymmetrically enlarged relative to the left palatine tonsil and with asy mmetric increased FDG uptake with maximal SUV of 3.2. No interval change in a 1.7 cm masslike density at the posterior nasopharynx with central photopenic defect which could represent enlarged adenoids or more likely a Tornwaldt cyst. No pathologically enlarged cervical lymphadenopathy or suspicious fo ci of increased FDG uptake in the visualized head or neck. Chest: Right internal jugular central venous port catheter with distal tip at the midsuperior vena cava. Mil d peripheral reticular opacities at the anterior right upper lobe. No other lung disease or pleural e ffusion. Heart size is normal. No pericardial effusion. Thoracic aorta is normal in caliber. Continue d decrease in size of known normal sized, previously enlarged and FDG avid mediastinal and left supra clavicular lymphadenopathy. No pathologically enlarged or FDG avid thoracic lymphadenopathy. Mild elda ateral gynecomastia. Abdomen/pelvis/proximal thighs: Physiologic renal accumulation and excretion of FDG activity in the kidneys, bladder and along portio ns of ureters. Normal degree and heterogenous pattern of increased uptake throughout the liver withou t radiologic correlate or dominant FDG avid lesion. The gallbladder, pancreas, spleen and bilateral a drenal glands are normal. Mild uptake scattered throughout the bowels without radiologic correlate, a lso likely physiologic. No other abnormal foci of increased FDG uptake or pathologically enlarged lym phadenopathy in the abdomen, pelvis or proximal thighs. Musculoskeletal: Bones are unremarkable with no suspicious lytic, blastic or FDG avid bone lesions. IMPRESSION: 1. Continued improvement in previously enlarged and FDG avid mediastinal and left cervical lymphadeno victorino which are now normal sized with no discernible FDG activity consistent with treated lymphoma. 2. Nonspecific asymmetric mild enlargement and mild increased FDG uptake at the right palatine tonsil . Reviewed, dictated and finalized at location B. IMPRESSION: 1. Continued improvement in previously enlarged and FDG avid mediastinal and le ft cervical lymphadenopathy which are now normal sized with no discernible FDG activity consistent with treated lymphoma. 2. Nonspecific asymmetric mild enlargement and mild increased FDG uptake at the right palatine tonsil.
[2021-03-31 06:46] LABS: Glucose Point of Care 87 mg/dl (65-105)
== END 2021-03-30 10:37 | disposition home or self-care (01) ==
LOC: ANHIMG 10:41
PROVIDERS: PCP Emergency Medicine; Visit Provider Internal Medicine Hematology & Oncology
DX: Z03.89 Encounter for observation for other suspected diseases and conditions ruled out (principal); C81.70 Other Hodgkin lymphoma, unspecified site
CPT/HCPCS: 78815; A9552

== ENCOUNTER → 2021-04-24 02:38 | Outpatient (CLI) | payer OTHER, SELFPAY ==
[2021-04-24 16:20] LABS: SARS-CoV-2 RNA PCR Negative
== END ==
PROVIDERS: PCP Emergency Medicine; Visit Provider Surgery
DX: Z01.812 Encounter for preprocedural laboratory examination (principal); Z20.822 Contact with and (suspected) exposure to COVID-19
CPT/HCPCS: C9803; U0003; U0005

== ENCOUNTER 2021-04-27 01:22 | Day surgery (SDC) | payer OTHER, MEDICAID, SELFPAY ==
[2021-04-21 08:43] VITALS: BMI 22.0
[2021-04-27 13:54] VITALS: BP 129/73; PULSE 71; RESP 14; TEMP 36.6; O2SAT 100; BMI 22.1
--- NOTE | 2021-04-27 13:55 | PM.IMHP ---
H&P: HPI History of Present Illness Date/Time: 04/27/21 13:55 Pt is a 30 y/o M presenting for removal of RIJ VAD. Pt had port placed in 09/11 for treatment of Hodgkins lymphoma. Pt has now completed treatment. Pt reports he did have some clots around catheter and did require a few treatments through peripheral veins. Pt otherwise describes no issues c port. Chief Complaint: Hodgkin lymphoma Review of Systems Review of Systems: All systems reviewed & are unremarkable except as noted in HPI and below PMFSH Past Medical History Medical History Eustachian tube dysfunction Hodgkin lymphoma (~07/2020) Port-A-Cath in place RSV (acute bronchiolitis due to respiratory syncytial virus) 2010 Smoker Family History Family History Other Lung cancer Social History Social History Smoking packs per day: 0.75 Smoking cigarettes per day: 15.0 Years smoked: 10 Smoking pack-years: 7.50 Smoking status: Former smoker Tobacco type: cigarettes Smoking end date: 09/22/20 Alcohol intake: never Alcohol use details: SPECIAL OCCASSIONS Substance use: current Substance use type: marijuana Other substance usage details: SMOKE Last use: 04/21/21 Living arrangements: with family Gender identity (if verbalized by the patient): Male Spiritual care concerns: No Meds Home Medications and Allergies Home Medications Medication Instructions Recorded Confirmed Type rivaroxaban [Xarelto] 20 mg PO DAILY #30 tablet 10/31/20 04/21/21 Rx Allergies Allergy/AdvReac Type Severity Reaction Status Date / Time No Known Allergies Allergy Verified 04/21/21 08:42 Exam Const: General: cooperative, healthy appearing, comfortable and no acute distress Nutritional Appearance: average body habitus Orientation/consciousness: patient oriented x3 Limitations: no limitations Neck: Neck: normal visual inspection, full ROM and no lymphadenopathy Chest: Chest palpation & inspection: normal inspection of the chest Other: RIJ VAD - C/D/I Resp: Effort & Inspection: normal respiratory effort Auscultation: clear to auscultation bilaterally Cardio: Rate: regular rate Rhythm: regular rhythm GI: Inspection: normal to inspection GI Palp: No abdominal tenderness, Yes Soft to palpation and No Tenderness to palpation present (GI) Assessment and Plan Assessment and plan (1) Hodgkin lymphoma: Onset Date: ~07/2020 Code(s): C81.90 - Hodgkin lymphoma, unspecified, unspecified site Status: Acute Assessment and Plan: s/p treatment, will setup for VAD removal
[2021-04-27] MEDS: LACTATED RINGERS 1,000 ML 30 ML IV CONT (13:59)
--- NOTE | 2021-04-27 13:59 | WPDHPUPDATE1 ---
History and Physical Update Update Date/Time: 04/27/21 13:59 History and Physical has been reviewed, including an updated exam of the patient. There are NO changes in the patient's condition. Risks, benefits, and alternatives have been discussed and questions answered. Patient agrees to proceed with procedure.
--- NOTE | 2021-04-27 15:07 | P.PNAN_ITS ---
Anes - Initial Pre Proc Eval Procedure: Operation Date: 04/27/21 15:15 Proposed Procedures p Removal Denny Cath - Brinda Singh MD Date/Time: 04/27/21 15:07 Surgeon: Brinda Singh MD Pre Op Diagnosis: classical hodgkins lymphoma Patient Data Age: 30 Gender: M Height: 1.8 m Weight: 72 kg Last Vital Signs Temp 36.6 C 04/27/21 13:54 Pulse 71 04/27/21 13:54 Resp 14 04/27/21 13:54 BP 129/73 04/27/21 13:54 Pulse Ox 100 04/27/21 13:54 Allergies Allergy/AdvReac Type Severity Reaction Status Date / Time No Known Allergies Allergy Verified 04/21/21 08:42 Home Medications Medication Instructions Recorded Confirmed Type rivaroxaban [Xarelto] 20 mg PO DAILY #30 tablet 10/31/20 04/21/21 Rx Patient hx anesthesia problems: none Family hx anesthesia problems: none Results Review: All pre-operative results and documents have been reviewed as part of the pre-operative evaluation. [facility] Past Medical History Medical History Eustachian tube dysfunction Hodgkin lymphoma (~07/2020) Port-A-Cath in place RSV (acute bronchiolitis due to respiratory syncytial virus) 2010 Smoker Family History Family History Other Lung cancer Social History Social History Smoking packs per day: 0.75 Smoking cigarettes per day: 15.0 Years smoked: 10 Smoking pack-years: 7.50 Smoking status: Former smoker Tobacco type: cigarettes Smoking end date: 09/22/20 Alcohol intake: never Alcohol use details: SPECIAL OCCASSIONS Substance use: current Substance use type: marijuana Other substance usage details: SMOKE Last use: 04/21/21 Living arrangements: with family Gender identity (if verbalized by the patient): Male Spiritual care concerns: No Anes - Eval Final PreProcedure Day of Procedure 04/27/21 15:07 Patient weight: normal Heart: regular rate and rhythm Lungs: decreased breath sounds Airway: Mallampati scale class II Neurological: alert and oriented Last oral intake: >/= 8 hours ASA classification: III Emergent: no Anesthetic plan: proceed Anesthesia type and monitoring: general GIVS and standard monitoring Results Review: All pre-operative results and documents have been reviewed as part of the pre-operative evaluation. Informed Consent: The patient's anesthetic plan and its attendant risks and benefits were discussed with the patient/family/POA. Questions were solicited and answers provided to the satisfaction of the patient/family/POA.
[2021-04-27] MEDS: ceFAZolin 2 GM/D5W 50 ML 2 GM/50 ML BAG IVPB (15:24)
[2021-04-27] MEDS: BUPIVACAINE HCL 0.5% PF 30 ML VIAL 10 ML INFILTRATE (15:44)
--- NOTE | 2021-04-27 15:52 | P.OP_ITS ---
Procedure Note - Detailed Date of Procedure 04/27/21 Pre-op Diagnosis classical hodgkins lymphoma Post-op Diagnosis same Procedure Performed removal of right internal jugular venous access device Surgeon Brinda Singh MD Anesthesia MAC and local Indications 30-year-old male status post placement of right internal jugular venous access device for treatment of Hodgkin's lymphoma in August of 2020. Pt is now status post treatment and would like port removed Findings right internal jugular venous access device Description of Procedure The patient was taken to the operating room and placed in the supine position. The patient was then prepped and draped in the normal sterile fashion. A time- out was then done to verify the patient's identity, as well as the procedure being performed. I began by localizing the area of the previously placed port in the right chest. After the area was adequately anesthetized, I made an incision through the previous incision to gain access to the port in the subcutaneous tissue. I was then able to identify the port and using dissection with the Bovie cautery, I was able to free the reservoir from the subcutaneous pocket. The reservoir was being held in by 2 sutures and these were subsequently cut. I was then able to remove the reservoir from the pocket. I then removed the catheter from the right internal jugular vein in full. I then held pressure at the level the right internal jugular vein for approximately 5 minutes. Hemostasis was noted and I irrigated the pocket. I then closed the subcutaneous tissue with 3-0 Vicryl suture. The skin was closed with 4-0 Monocryl subcuticular suture. Dermabond was placed on the wound. The patient tolerated the procedure well and was alert and awake in the operating room postoperative. The patient will be sent to the recovery room in stable condition. Estimated Blood Loss 5 Drains No Packing No Pathology none sent Complications No immediate complications Condition stable Disposition PACU
[2021-04-27 15:57] VITALS: BP 95/54; PULSE 54; RESP 16; O2SAT 95
[2021-04-27 16:25] VITALS: BP 115/76; PULSE 66; RESP 16; O2SAT 95
[2021-04-27 16:55] VITALS: BP 120/78; PULSE 55; RESP 16
== END 2021-04-27 17:15 | disposition home or self-care (01) ==
PROVIDERS: PCP Emergency Medicine; Visit Provider Surgery
PROC: (CPT 36589; principal; 2021-04-27 15:15)
DX: Z45.2 Encounter for adjustment and management of vascular access device (principal); Z85.71 Personal history of Hodgkin lymphoma; Z87.891 Personal history of nicotine dependence; F12.90 Cannabis use, unspecified, uncomplicated; Z79.01 Long term (current) use of anticoagulants
CPT/HCPCS: 36590; C9803; J0690; J1100; J2250; J2405; J2704; J3010; J7120; U0003; U0005

== ENCOUNTER 2021-10-09 09:49 | Outpatient (CLI) | payer OTHER, MEDICAID, SELFPAY ==
--- NOTE | ~2021-10-09 | CT_ITS ---
EXAMINATION: CT diagnostic chest w con EXAM DATE: 10/09/2021 10:53 INDICATION: Hodgkin's lymphoma. TECHNIQUE: Spiral CT of the chest following intravenous injection of 20 mL Omnipaque 350. Axial, cor onal and sagittal images of the chest were reviewed. Coronal maximum intensity pixel images of chest reviewed. The dose-length product (DLP) for this examination was 163.04 mGy-cm. The exposure was t ailored according to patient size (auto mA exposure control), and iterative reconstruction (ASIR) was used as additional dose reduction technique. I received a phone call about possible contrast reaction. Injection was started but then stopped afte r 20 mL was injected. Patient reported having with some were to sensations in right arm with injectio n (right arm was injected). Technologist reports that the right arm had blanching red spots, which robb d resolved a minute later when I was in the room. I witnessed somewhat anxious but otherwise normal p atient with normal-appearing injection site, arm, who said he experienced unusual sensation in his ri ght arm during injection but now he is fine. We took vitals before continuing with the scan, blood pr essure 139/89. He had normal respirations, heart rate and pulse ox of 100%. Vitals obtained again aft er the scan, also normal. He was observed after this scan with no additional symptoms. Uncertain whet her or not this was contrast reaction but given the technologist say that the injected arm did have r edness, could have been a contrast reaction. Consider doing scans in the future without contrast or p remedication. FINDINGS: Previous scan had left supraclavicular and prevascular lymphadenopathy. Today the largest l ymph node identified measures 1.3 x 0.8 cm (previously 3.1 x 2.0 cm). This is within normal size limi ts. Right lower lobe superior segmental calcified granuloma. The lungs are otherwise clear. There a re no pleural or pericardial effusions. Tracheobronchial tree is patent. There is no pneumothorax . Heart normal in size. No evidence of coronary arterial calcification. Contrast is present in r enal calyces. There is mild thoracic spondylosis without osteoblastic or osteolytic lesions identifi ed. IMPRESSION: 1. Normalization of previously seen prevascular and left supraclavicular lymphadenopathy. 2. Possible contrast reaction; consider noncontrast study or premedication in the future. Reviewed, dictated and finalized at location [facility]. IMPRESSION: 1. Normalization of previously seen prevascular and left supraclavicular lymph adenopathy. 2. Possible contrast reaction; consider noncontrast study or premedication in the future.
== END 2021-10-09 09:50 | disposition home or self-care (01) ==
LOC: ANHIMG 09:56
PROVIDERS: PCP Emergency Medicine; Visit Provider Internal Medicine Hematology & Oncology
DX: C81.70 Other Hodgkin lymphoma, unspecified site (principal)
CPT/HCPCS: 71260; Q9967

== ENCOUNTER 2022-03-26 10:15 | Outpatient (CLI) | payer OTHER, MEDICAID, SELFPAY ==
--- NOTE | ~2022-03-26 | CT_ITS ---
EXAMINATION:CT diagnostic chest wo con DATE: 03/26/2022 10:41 INDICATION: Classical Hodgkin lymphoma. TECHNIQUE: Computed tomography (CT) of the chest was performed without intravenous contrast. Automate d exposure control and iterative reconstruction technique were employed. The dose-length product (DLP ) was 167.39 mGy-cm. COMPARISON: Chest CT 10/09/2021, 08/12/20, PET CT 03/30/2021 FINDINGS: A calcified right lung nodule is consistent with old granulomatous disease. No pleural effu shira. The heart size is normal. No pericardial effusion. There is a 10 x 14 mm node in the superior m ediastinum. There is mild thoracic spondylosis. IMPRESSION: 1. Borderline enlarged mediastinal lymph node, stable from 10/09/2021 and improved from 08/12/2020, con sistent with treated lymphoma. Reviewed, dictated and finalized at location [facility]. IMPRESSION: 1. Borderline enlarged mediastinal lymph node, stable from 10/09/2021 and improv ed from 08/12/2020, consistent with treated lymphoma.
== END 2022-03-26 10:16 | disposition home or self-care (01) ==
PROVIDERS: PCP Emergency Medicine; Visit Provider Internal Medicine Hematology & Oncology
DX: C81.70 Other Hodgkin lymphoma, unspecified site (principal); M47.814 Spondylosis without myelopathy or radiculopathy, thoracic region
CPT/HCPCS: 71250

== ENCOUNTER 2022-08-07 17:51 | Outpatient (CLI) | payer OTHER, MEDICAID, SELFPAY ==
--- NOTE | ~2022-08-07 | CT_ITS ---
EXAMINATION: CT diagnostic chest wo con DATE: 08/07/2022 18:08 INDICATION: Classical Hodgkin lymphoma TECHNIQUE: Computed tomography (CT) of the chest was performed without intravenous contrast. The dose -length product was 192.48 mGy-cm. Automated exposure control and iterative reconstruction technique were employed. COMPARISON: CT dated 03/26/2022 and 10/09/2021 FINDINGS: Slightly decreased size of lymph node in the superior mediastinum measuring 12 x 8 mm. Ther e is residual thymic tissue. Heart size normal. No significant pleural or pericardial effusion. There is a calcified granuloma of the right thorax. No significant pleural or pericardial effusion. No lym phadenopathy of the upper abdomen. No significant abnormality of the aorta. No endobronchial lesions. No suspicious pulmonary nodules or masses. No pneumothorax. Mild thoracic spondylosis. IMPRESSION: 1. Borderline sized mediastinal lymph node, improved since 03/26/2022, consistent with treated lympho ma. Reviewed, dictated and finalized at location [facility]. EVEL PROVIDER IMPRESSION: 1. Borderline sized mediastinal lymph node, improved since 03/26/2022, consiste nt with treated lymphoma.
[2022-08-07 18:32] LABS: Basophils Absolute Auto 0.1 K/mm3 (0.0-0.1); Basophils Percent Auto 1.2 % (0.2-1.2); Eosinophils Absolute Auto 0.4 K/mm3 (0-0.3); Eosinophils Percent Auto 4.3 % (0-4.4); Hematocrit 43.8 % (42.0-52.0); Hemoglobin 15.3 g/dL (14.0-18.0); Immature Granulocyte Absolute 0.02 K/mm3 (0.00-0.031); Immature Granulocyte Percent A 0.2 % (0-0.5); Lymphocytes Absolute Auto 3.56 K/mm3 (0.9-3.2); Lymphocytes Percent Auto 42.2 % (18.3-44.2); Mean Corpuscular HGB Conc 34.9 g/dl (32-36); Mean Corpuscular Hemoglobin 31.7 pg (26-34); Mean Corpuscular Volume 90.7 fl (80-100); Monocytes Absolute Auto 0.6 K/mm3 (0.1-0.6); Monocytes Percent Auto 7.3 % (2.6-8.5); Neutrophils Absolute Auto 3.8 K/mm3 (1.3-6.7); Neutrophils Percent Auto 44.8 % (45.5-73.1); Platelet Count Result 242 k/mm3 (150-375); Red Blood Count 4.83 M/mm3 (4.6-6.20); Red Cell Distribution Width 13.1 % (11.5-14.5); White Blood Count 8.4 K/mm3 (4.5-10.0)
[2022-08-07 18:43] LABS: Alanine Aminotransferase 20 U/L (6-50); Alkaline Phosphatase 73 U/L (38-126); Anion Gap 9 mmol/L (8-16); Aspartate Amino Transferase 27 U/L (17-59); Bilirubin,Total 0.6 mg/dL (0.2-1.3); Blood Urea Nitrogen 15 mg/dL (9-20); Calcium 9.4 mg/dL (8.4-10.2); Carbon Dioxide 26 mmol/L (22-30); Chloride 102 mmol/L (98-107); Estimated Glomerular Filt Rate > 60; Glucose 102 mg/dL (65-110); Lactate Dehydrogenase 143 U/L (120-246); Sodium 137 mmol/L (137-145)
== END 2022-08-07 17:52 | disposition home or self-care (01) ==
LOC: ANHIMG 17:54
PROVIDERS: PCP Emergency Medicine; Visit Provider Internal Medicine Hematology & Oncology
DX: C81.70 Other Hodgkin lymphoma, unspecified site (principal)
CPT/HCPCS: 36415; 71250; 80053; 83615; 85025

== ENCOUNTER 2023-02-16 11:10 | Outpatient (CLI) | payer OTHER, MEDICAID, SELFPAY ==
--- NOTE | ~2023-02-16 | CT_ITS ---
EXAMINATION: CT diagnostic chest wo con DATE: 02/16/2023 11:54 INDICATION: Follow-up of classic Hodgkin's lymphoma, treated. TECHNIQUE: Computed tomography (CT) of the chest was performed without intravenous contrast. Automate d exposure control and iterative reconstruction technique were employed. Exam dose: 173.90 mGy-cm to ramesh exam DLP. COMPARISON: . August 07, 2022, 03/26/2022, CT chest FINDINGS: There is no interval new or enlarging hilar or mediastinal lymphadenopathy since . Normal heart size. No pericardial or pleural effusion. Normal caliber of the thoracic and proximal an d mid abdominal aorta. No pulmonary infiltrate or consolidation or pulmonary mass lesion. Included skeletal structures are unremarkable. IMPRESSION: No evidence of new or enlarged adenopathy since August 07, 2022 Reviewed, dictated and finalized at [facility]. Reviewed, dictated and finalized at location [facility].
== END 2023-02-16 11:11 | disposition home or self-care (01) ==
PROVIDERS: PCP Emergency Medicine; Visit Provider Internal Medicine Hematology & Oncology
DX: C81.70 Other Hodgkin lymphoma, unspecified site (principal)
CPT/HCPCS: 71250

== ENCOUNTER 2023-03-05 14:58 | Outpatient (CLI) | payer OTHER, MEDICAID, SELFPAY ==
[2023-03-05 15:13] LABS: Basophils Absolute Auto 0.1 K/mm3 (0.0-0.1); Basophils Percent Auto 0.9 % (0.2-1.2); Eosinophils Absolute Auto 0.2 K/mm3 (0-0.3); Hematocrit 45.9 % (42.0-52.0); Hemoglobin 16.1 g/dL (14.0-18.0); Immature Granulocyte Absolute 0.01 K/mm3 (0.00-0.031); Immature Granulocyte Percent A 0.2 % (0-0.5); Lymphocytes Percent Auto 27.7 % (18.3-44.2); Mean Corpuscular HGB Conc 35.1 g/dl (32-36); Mean Corpuscular Hemoglobin 31.7 pg (26-34); Mean Corpuscular Volume 90.4 fl (80-100); Mean Platelet Volume 10.1 fl (7.4-10.4); Monocytes Absolute Auto 0.5 K/mm3 (0.1-0.6); Monocytes Percent Auto 8.5 % (2.6-8.5); Neutrophils Absolute Auto 3.4 K/mm3 (1.3-6.7); Neutrophils Percent Auto 58.7 % (45.5-73.1); Platelet Count Result 233 k/mm3 (150-375); Red Blood Count 5.08 M/mm3 (4.6-6.20); Red Cell Distribution Width 12.6 % (11.5-14.5); White Blood Count 5.8 K/mm3 (4.5-10.0)
[2023-03-05 15:18] LABS: Blood Urea Nitrogen 17 mg/dL (8-26); Carbon Dioxide 29 mmol/L (22-30); Chloride 98 mmol/L (98-109); Estimated Glomerular Filt Rate > 60; Glucose 93 mg/dL (70-105); Ionized Calcium (POC) 1.23 mmol/L (1.11-1.31); Sodium 140 mmol/L (138-146)
[2023-03-05 16:37] LABS: Alanine Aminotransferase 21 U/L (6-50); Albumin Level 4.8 g/dL (3.5-5.1); Alkaline Phosphatase 60 U/L (38-126); Anion Gap 5 mmol/L (8-16); Aspartate Amino Transferase 26 U/L (17-59); Bilirubin,Total 1.1 mg/dL (0.2-1.3); Blood Urea Nitrogen 17 mg/dL (9-20); Calcium 9.7 mg/dL (8.4-10.2); Carbon Dioxide 32 mmol/L (22-30); Chloride 100 mmol/L (98-107); Estimated Glomerular Filt Rate > 60; Glucose 93 mg/dL (65-110); Lactate Dehydrogenase 128 U/L (120-246); Sodium 137 mmol/L (137-145)
== END 2023-03-05 14:59 | disposition home or self-care (01) ==
LOC: ANHLAB 15:01
PROVIDERS: PCP Emergency Medicine; Visit Provider Internal Medicine Hematology & Oncology
DX: C81.70 Other Hodgkin lymphoma, unspecified site (principal)
CPT/HCPCS: 36415; 80047; 80053; 83615; 85025

== ENCOUNTER 2023-09-12 07:33 | Outpatient (CLI) | payer OTHER, SELFPAY ==
--- NOTE | ~2023-09-12 | CT_ITS ---
Clinical Indication: Hodgkin's lymphoma CT Scan of the Chest, Abdomen, and Pelvis with Contrast: Technique: Contiguous sections were acquired throughout the chest, abdomen, and pelvis after intraven ous administration of 100 cc of Omnipaque 350. Dose reduction technique was used on this scan by uti ivetteing automated exposure control and iterative reconstruction technique. The dose-length product (DL P) was 385.16 mGy-cm. COMPARISON: 02/16/2023 Findings: There is no evidence of any significant mediastinal, hilar or axillary lymphadenopathy. The mediastin al soft tissues appear normal. There is no evidence of pleural or pericardial effusion. The lungs are clear. No pulmonary nodules or infiltrates are noted. The liver, spleen, pancreas, gallbladder, adrenals and kidneys are within normal limits. No evidence of aortic aneurysm. No lymphadenopathy. No bowel obstruction or bowel wall thickening. There is no evidence to suggest acute appendicitis. Urinary bladder is unremarkable. No pelvic mass seen. No ascites. Impression: No evidence for active malignancy or metastatic disease. No abnormal lymphadenopathy seen. Reviewed, dictated and finalized at [facility]. Impression: No evidence for active malignancy or metastatic disease. No abnormal lymphadeno victorino seen.
== END 2023-09-12 07:34 | disposition home or self-care (01) ==
PROVIDERS: PCP Internal Medicine Hematology & Oncology; Visit Provider Internal Medicine Hematology & Oncology
DX: C81.70 Other Hodgkin lymphoma, unspecified site (principal)
CPT/HCPCS: 71260; 74177; Q9967

== ENCOUNTER 2024-03-27 08:01 | Outpatient (CLI) | payer OTHER, SELFPAY ==
[2024-03-27 08:24] LABS: Basophils Absolute Auto 0.1 K/mm3 (0.0-0.1); Basophils Percent Auto 1.3 % (0.2-1.2); Eosinophils Absolute Auto 0.6 K/mm3 (0-0.3); Eosinophils Percent Auto 10.2 % (0-4.4); Hematocrit 43.2 % (42.0-52.0); Hemoglobin 15.3 g/dL (14.0-18.0); Immature Granulocyte Absolute 0.02 K/mm3 (0.00-0.031); Immature Granulocyte Percent A 0.3 % (0-0.5); Lymphocytes Absolute Auto 1.95 K/mm3 (0.9-3.2); Lymphocytes Percent Auto 31.6 % (18.3-44.2); Mean Corpuscular HGB Conc 35.4 g/dl (32-36); Mean Corpuscular Hemoglobin 32.1 pg (26-34); Mean Corpuscular Volume 90.8 fl (80-100); Monocytes Absolute Auto 0.5 K/mm3 (0.1-0.6); Monocytes Percent Auto 8.4 % (2.6-8.5); Neutrophils Percent Auto 48.2 % (45.5-73.1); Platelet Count Result 218 k/mm3 (150-375); Red Blood Count 4.76 M/mm3 (4.6-6.20); Red Cell Distribution Width 12.8 % (11.5-14.5); White Blood Count 6.2 K/mm3 (4.5-10.0)
[2024-03-27 08:27] LABS: Blood Urea Nitrogen 15 mg/dL (8-26); Carbon Dioxide 25 mmol/L (22-30); Chloride 103 mmol/L (98-109); Estimated Glomerular Filt Rate > 60; Glucose 103 mg/dL (70-105); Ionized Calcium (POC) 1.16 mmol/L (1.11-1.31); Sodium 139 mmol/L (138-146)
[2024-03-27 13:34] LABS: Alanine Aminotransferase 19 U/L (6-50); Albumin Level 4.5 g/dL (3.5-5.1); Alkaline Phosphatase 60 U/L (38-126); Anion Gap 4 mmol/L (4-12); Aspartate Amino Transferase 71 U/L (17-59); Bilirubin,Total 0.9 mg/dL (0.2-1.3); Blood Urea Nitrogen 17 mg/dL (9-20); Calcium 9.3 mg/dL (8.4-10.2); Carbon Dioxide 29 mmol/L (22-30); Chloride 104 mmol/L (98-107); Estimated Glomerular Filt Rate > 60; Glucose 93 mg/dL (65-110); Lactate Dehydrogenase 145 U/L (120-246); Potassium 4.1 mmol/L (3.4-5.0); Sodium 137 mmol/L (137-145)
== END 2024-03-27 08:02 | disposition home or self-care (01) ==
LOC: ANHLAB 08:03
PROVIDERS: PCP Internal Medicine Hematology & Oncology; Visit Provider Internal Medicine Hematology & Oncology
DX: C81.70 Other Hodgkin lymphoma, unspecified site (principal)
CPT/HCPCS: 36415; 80047; 80053; 83615; 85025